=== PATIENT | male | born 1995 | race Caucasian/White ===

== ENCOUNTER 2022-09-12 15:24 | Emergency (ER) | payer BC, SELFPAY ==
[2022-09-12] VITALS (10 sets, daily range): BP systolic 116–142; BP diastolic 69–83; PULSE 83–108; RESP 12–19; TEMP 37.2; O2SAT 97–99
--- NOTE | ~2022-09-12 | CT_ITS ---
EXAMINATION: CT facial & cervical spine wo DATE: 09/12/2022 17:32 INDICATION: fall TECHNIQUE: Computed tomography (CT) of the maxillofacial region and cervical spine was performed with out intravenous contrast. Automated exposure control and iterative reconstruction technique were empl oyed. The dose-length product was 495.05 mGy-cm. COMPARISON: CT brain, same date. CT face 01/30/2009. FINDINGS: CERVICAL: Vertebral Body Alignment: Intact. Craniocervical and atlantoaxial alignment: No significant degenerative change. Alignment intact. Osseous structures/fracture: No evidence of a lytic or blastic process in the visualized spine. No e vidence of acute fracture. Unfused posterior arch at C6. Cervical soft tissues: The paraspinal soft tissues planes are maintained. Degenerative changes: Mild degenerative changes, without severe neural foraminal or central canal yarelis rowing. FACE: Soft Tissues: No significant superficial soft tissue swelling. Facial bones: No acute fracture. No lytic or blastic process. Eyes: The globes are intact. The soft tissue planes of the orbits are maintained. Paranasal Sinuses: Left frontal ethmoid and maxillary sinus mucosal thickening with aerated secretio ns in the maxillary sinus. Left mastoid effusion. Foreign Bodies: No radiopaque foreign bodies. Other Findings: None. IMPRESSION: No acute fracture or traumatic malalignment in the cervical spine. No acute facial bone fracture. Par anasal sinus findings may represent acute sinusitis in the appropriate clinical context. Left mastoid effusion. Reviewed, dictated and finalized at location K. ER LEVELER IMPRESSION: No acute fracture or traumatic malalignment in the cervical spine. No acute fac ial bone fracture. Paranasal sinus findings may represent acute sinusitis in th e appropriate clinical context. Left mastoid effusion.
--- NOTE | ~2022-09-12 | CT_ITS ---
EXAMINATION: CT brain wo con DATE: 09/12/2022 16:46 INDICATION: syncope . TECHNIQUE: Computed tomography (CT) of the head was performed without intravenous contrast. The mA wa s adjusted according to patient size. Iterative reconstruction technique was employed. The dose-lengt h product was 605.33 mGy-cm. COMPARISON: 01/30/2009. FINDINGS: No acute intracranial hemorrhage or extra-axial fluid collection. No hydrocephalus, mass, or herniation. No acute ischemic infarct. Unremarkable dural venous sinus attenuation. No acute osseous abnormality. Aerated secretions and mucosal thickening in the right maxillary and right ethmoid sinuses. Left mast oid effusion. The remaining aerated spaces are clear. IMPRESSION: No acute intracranial process. Right ethmoid and maxillary sinus findings may represent acute sinusit is in the appropriate clinical context. Left mastoid effusion. Reviewed, dictated and finalized at location K. L ENGRAVER IMPRESSION: No acute intracranial process. Right ethmoid and maxillary sinus findings may r epresent acute sinusitis in the appropriate clinical context. Left mastoid effu karin.
--- NOTE | ~2022-09-12 | XR_ITS ---
EXAMINATION: XR chest 1V portable Exam Date/Time: 09/12/2022 16:29 KID CLUB ATTENDANT HISTORY: Syncope Comparison: None available. RESULT: Lines, tubes, and devices: None. Lungs and pleura: Clear. Cardiomediastinal silhouette: Stable. Other: No acute osseous or upper abdominal finding. IMPRESSION: No acute cardiopulmonary process. Reviewed, dictated and finalized at location K. CLUB ATTENDANT
--- NOTE | 2022-09-12 15:31 | ECG_ITS ---
Measurements Intervals [place] Rate: 94 P: 19 WI: 124 QRS: 47 QRSD: 108 T: 36 QT: 345 QTc: 432 Interpretive Statements SINUS RHYTHM NORMAL ECG NO PREVIOUS ECG AVAILABLE FOR COMPARISON Electronically Signed On 09-12-2022 17:03:53 CONSUMER STUDIES PROFESSOR by Jhon Bloom M.D.
--- NOTE | 2022-09-12 16:26 | ED.SYNCOPE ---
HPI - Syncope General Chief Complaint: Syncope Stated Complaint: syncope Time Seen by Provider: 09/12/22 16:22 Source: patient and family Mode of arrival: ambulatory Limitations: no limitations History of Present Illness HPI narrative: Patient is 27 years old white female was in a [employer] libertarian, was in a standing position for about 2 to 3 minutes, suddenly developed lightheadedness and dizziness, ended up on the ground, grass, he reports marijuana use. He is telling me that he did not drinking alcohol at that time. His mom went to pick him up and drove him to our emergency room. Patient reported having similar symptoms 8 years ago of unknown etiology. Patient been having cold like symptoms for over 1 month, did not tested for COVID, is not vaccinated for COVID, finished a course of antibiotics for chronic sinusitis and bronchitis yesterday, patient on chronic antihistamine medication. Patient reports that his coughing and cold symptoms did not get any better after finishing the course of antibiotic. Patient complaining of left face pain after falling to the ground Related Data Allergies Allergy/AdvReac Type Severity Reaction Status Date / Time No Known Allergies Allergy Mild Verified 09/12/22 17:55 Review of Systems Review of Systems: All systems reviewed & are unremarkable except as noted in HPI and below PMFSH Past Medical History Medical History BMI 34.0-34.9,adult BMI 35.0-35.9,adult Body mass index [BMI] 36.0-36.9, adult COVID-19 Left shoulder pain Family History Family History Grandparent Hypertension Family history of heart disease in male family member before age 55 Diabetes mellitus Father No problems noted. 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 Musculoskeletal: Normal range of motion, nontender back Neurologic: Alert and oriented ?3, STUDENT SERVICES DIRECTOR is normal as tested, no gross motor deficit Course Vital Signs Vital signs: Vital Signs Temperature 37.2 C 09/12/22 15:30 Pulse Rate 108 H 09/12/22 15:30 Respiratory Rate 17 09/12/22 15:30 Blood Pressure 127/69 09/12/22 15:30 Pulse Oximetry 99 09/12/22 15:30 Oxygen Delivery Room Air 09/12/22 15:30 Temperature 37.2 C 09/12/22 15:30 Pulse Rate 91 09/12/22 19:45 Respiratory Rate 13 09/12/22 19:45 Blood Pressure 133/71 09/12/22 19:31 Pulse Oximetry 98 09/12/22 19:45 Oxygen Delivery Room Air 09/12/22 15:30 MDM - Syncope MDM Narrative Medical decision making narrative: Patient presents with syncope. While enjoying [employer] libertarian. Complaining of left facial pain otherwise asymptomatic. History of chronic sinus infecti
[2022-09-12 16:30] LABS: Basophils Percent Auto 0.3 % (0.2-1.2); Eosinophils Absolute Auto 0.1 K/mm3 (0-0.3); Eosinophils Percent Auto 0.5 % (0-4.4); Hematocrit 45.8 % (42.0-52.0); Hemoglobin 16.4 g/dL (14.0-18.0); Immature Granulocyte Absolute 0.07 K/mm3 (0.00-0.031); Immature Granulocyte Percent A 0.5 % (0-0.5); Lymphocytes Absolute Auto 0.56 K/mm3 (0.9-3.2); Lymphocytes Percent Auto 4.1 % (18.3-44.2); Mean Corpuscular HGB Conc 35.8 g/dl (32-36); Mean Corpuscular Hemoglobin 30.3 pg (26-34); Mean Corpuscular Volume 84.7 fl (80-100); Mean Platelet Volume 9.9 fl (7.4-10.4); Monocytes Absolute Auto 0.7 K/mm3 (0.1-0.6); Monocytes Percent Auto 5.3 % (2.6-8.5); Neutrophils Absolute Auto 12.3 K/mm3 (1.3-6.7); Neutrophils Percent Auto 89.3 % (45.5-73.1); Platelet Count Result 182 k/mm3 (150-375); Red Blood Count 5.41 M/mm3 (4.6-6.20); Red Cell Distribution Width 12.5 % (11.5-14.5); White Blood Count 13.8 K/mm3 (4.5-10.0)
[2022-09-12 16:42] LABS: Alanine Aminotransferase 55 U/L (6-50); Alkaline Phosphatase 56 U/L (38-126); Anion Gap 9 mmol/L (8-16); Aspartate Amino Transferase 38 U/L (17-59); Bilirubin,Total 1.3 mg/dL (0.2-1.3); Blood Urea Nitrogen 16 mg/dL (9-20); Calcium 8.9 mg/dL (8.4-10.2); Carbon Dioxide 24 mmol/L (22-30); Chloride 105 mmol/L (98-107); Estimated CRCL calculation 119 ml/min; Estimated Glomerular Filt Rate > 60; Glucose 91 mg/dL (65-110); Potassium 3.8 mmol/L (3.4-5.0); Sodium 138 mmol/L (137-145)
[2022-09-12 17:30] LABS: Ethanol 11 mg/dL (<10)
[2022-09-12 17:37] LABS: Troponin I < 0.012 ng/mL (0.000-0.034)
[2022-09-12] MEDS: SODIUM CHLORIDE 0.9% IV 1,000 ML 999 ML IV CONT (17:49)
[2022-09-12 18:15] LABS: Add Urine Microscopic? NO; Appearance Urine Clear (Clear); Bilirubin Urine Negative (Negative); Blood Urine Negative (Negative); Color Urine Yellow (Yellow); Glucose Urine UA Negative (Negative); Ketones Urine Negative (Negative); Leukocyte Esterase Ur Negative LEU/UL (Negative); Nitrate Urine Negative (Negative); Protein Urine Negative (Negative); Urobilinogen Urine 0.2 mg/dL (<2.0); pH Urine 5.5 (5.0-9.0)
[2022-09-12 18:29] LABS: Amphetamine Screen Urine Positive (Negative); Barbiturate Screen Urine Negative (Negative); Benzodiazepines Screen Urine Negative (Negative); Cannabinoid Screen Urine Positive (Negative); Cocaine Screen Urine Negative (Negative); Methadone Screen Urine Negative (Negative); Opiate Screen Urine Negative (Negative); Phencyclidine Screen Urine Negative (Negative)
[2022-09-12 18:49] LABS: Influenza A QL RT-PCR Negative (Negative); Influenza B QL RT-PCR Negative (Negative); RSV RNA, RT-PCR Negative (Negative); SARS-CoV-2 RNA PCR Negative
--- NOTE | 2022-09-12 19:54 | PC.NURSE ---
Pt ambulatory to bathroom with steady gait at this time. Dr. Condon made aware.
== END 2022-09-12 20:06 | disposition home or self-care (01) ==
PROVIDERS: Emergency Provider Emergency Medicine; PCP Family Medicine
DX: R55 Syncope and collapse (principal); J32.9 Chronic sinusitis, unspecified; F15.90 Other stimulant use, unspecified, uncomplicated; F12.90 Cannabis use, unspecified, uncomplicated; Z20.822 Contact with and (suspected) exposure to COVID-19; Z86.16 Personal history of COVID-19; Z28.310 Unvaccinated for COVID-19
CPT/HCPCS: 36415; 70450; 70486; 71045; 72125; 80053; 80307; 81003; 84484; 85025; 87637; 93005; 96360; 96361; 99284; J7030

== ENCOUNTER 2023-01-05 00:25 | Day surgery (SDC) | payer BC, SELFPAY ==
[2023-01-04 08:41] VITALS: BMI 34.5
[2023-01-05 09:09] VITALS: BP 131/85; PULSE 72; RESP 16; TEMP 36.5; O2SAT 100; BMI 34.0
--- NOTE | 2023-01-05 09:13 | WPDANESEPPF ---
Anes - Initial Pre Proc Eval Procedure: Operation Date: 01/05/23 10:15 Proposed Procedures p Colonoscopy - Arsenio Boles MD Date/Time: 01/05/23 09:13 Surgeon: Arsenio Boles MD Pre Op Diagnosis: melena Patient Data Age: 27 Gender: M Height: 1.55 m Weight: 81.6 kg Last Vital Signs Temp 36.5 C 01/05/23 09:09 Pulse 72 01/05/23 09:09 Resp 16 01/05/23 09:09 BP 131/85 01/05/23 09:09 Pulse Ox 100 01/05/23 09:09 O2 Del Method Room Air 01/05/23 09:09 Allergies Allergy/AdvReac Type Severity Reaction Status Date / Time No Known Allergies Allergy Mild Verified 01/05/23 09:07 Home Medications Medication Instructions Recorded Confirmed Type meloxicam 15 mg tablet 15 mg PO DAILY #30 tabs 10/21/22 01/05/23 Rx lisdexamfetamine 70 mg capsule 70 mg PO DAILY #30 caps 12/28/22 01/05/23 Rx (Vyvanse) Patient hx anesthesia problems: none Family hx anesthesia problems: none Results Review: All pre-operative results and documents have been reviewed as part of the pre-operative evaluation. [facility] Past Medical History Medical History BMI 32.0-32.9,adult BMI 34.0-34.9,adult BMI 35.0-35.9,adult Body mass index [BMI] 36.0-36.9, adult COVID-19 Left shoulder pain Family History Family History Grandparent Hypertension Family history of heart disease in male family member before age 55 Diabetes mellitus Father No problems noted. Mother COVID-19 Sibling COVID-19 Social History Social History (Updated 11/26/22 @ 09:47 by TRESA Díaz) Smoking status: Former smoker Tobacco type: cigarettes Second hand tobacco smoke exposure: Yes Alcohol intake: former Substance use: current Substance use type: marijuana, crack/cocaine and methamphetamine Other substance usage details: occasionally Lack of Transportation: No Lack of Food: Never True Current Housing: I Have Housing Concerned About Future Housing: No Difficulty Paying Gas/Electric Bills: No Difficulty Paying for Meds: No Currently Unemployed: No Education: Trade/Vocational Certificate Difficulty w/ Childcare or Family Care: No Living arrangements: alone Occupation/Education: occupation 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 Informed Consent: The patient's anesthetic plan and its attendant risks and benefits were discussed with the patient/family/POA. Questions were solicited and answers provided to the satisfaction of the patient/family/POA.
[2023-01-05] MEDS: LACTATED RINGERS 1,000 ML 150 ML IV CONT (09:20)
--- NOTE | 2023-01-05 09:42 | PM.HPGS ---
History of Present Illness History of Present Illness Consent: Risks, benefits, and alternatives have been discussed and questions answered. Patient agrees to proceed with procedure. Chief complaint: melena Narrative: Sammy Cronin is a 27 year old male with intermittent blood in stool, never had colonoscopy Review of Systems Constitutional: Constitutional: Denies headache(s) and Denies weakness Eyes: Eyes: Denies blurry vision ENT: Reports Normal hearing present, Denies headache(s) and Denies neck pain Cardiovascular: Cardiovascular: Denies chest pain and Denies dyspnea Respiratory: Respiratory: Denies dyspnea Gastrointestinal: Gastrointestinal: Reports no additional gastrointestinal complaints Genitourinary: Genitourinary: Denies dysuria Musculoskeletal: Musculoskeletal: Denies neck pain Integumentary/Breasts: Skin/Breast: Denies dry skin Neurologic: Reports Normal hearing present, Denies headache(s) and Denies weakness Psychiatric: Psychiatric: Denies anxiety Endocrine: Endocrine: Denies change in body appearance Hematologic/Lymphatic: Hematologic/Lymphatic: Denies easy bleeding Allergic/Immunologic: Allergic/Immunologic: Denies urticaria PMFSH Past Medical History Medical History BMI 32.0-32.9,adult BMI 34.0-34.9,adult BMI 35.0-35.9,adult Body mass index [BMI] 36.0-36.9, adult COVID-19 Left shoulder pain Family History Family History Grandparent Hypertension Family history of heart disease in male family member before age 55 Diabetes mellitus Father No problems noted. Mother COVID-19 Sibling COVID-19 Social History Social History (Updated 11/26/22 @ 09:47 by TRESA Díaz) Smoking status: Former smoker Tobacco type: cigarettes Second hand tobacco smoke exposure: Yes Alcohol intake: former Substance use: current Substance use type: marijuana, crack/cocaine and methamphetamine Other substance usage details: occasionally Lack of Transportation: No Lack of Food: Never True Current Housing: I Have Housing Concerned About Future Housing: No Difficulty Paying Gas/Electric Bills: No Difficulty Paying for Meds: No Currently Unemployed: No Education: Trade/Vocational Certificate Difficulty w/ Childcare or Family Care: No Living arrangements: alone Occupation/Education: occupation 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 Gender identity (if verbalized by the patient): Male Spiritual care concerns: No Meds Home Medications and Allergies Home Medications Medication Instructions Recorded Confirmed Type meloxicam 15 mg tablet 15 mg PO DAILY #30 tabs 10/21/22 01/05/23 Rx lisdexamfetamine 70 mg capsule 70 mg PO DAILY #30 caps 12/28/22 01/05/23 Rx (Vyvanse) Allergies Allergy/AdvReac Type Severity Reaction Status Date / Time No Known Allergies Allergy Mild Verified 01/05/23 09:07 Vital Signs Vital Signs - 24 hr 01/05/23 09:09 Temperature 97.7 F Pulse Rate 72 Respiratory Rate 16 Blood Pressure 131/85 Pulse Oximetry 100 Oxygen Delivery Room Air Exam Const: General: comfortable and no acute distress HENMT: Face/Nose/Sinus: Normal nares present Eyes: General: appearance normal, both eyes and all related structures Neck: Neck: no JVD Resp: Auscultation: clear to auscultation bilaterally Cardio: Rate: regular rate Rhythm: regular rhythm GI: Inspection: non-distended GI Palp: Yes Soft to palpation Skin: General skin exam: normal color Neuro: General: gait normal Speech: normal speech Extrem: General: normal to inspection Psych: Mental Status: mental status grossly normal Assessment and Plan Assessment and plan (1) Blood in stool: Code(s): K92.1 - Melena Status: Acute Assessment and Plan: probably perianal but will assess with col
[2023-01-05 10:04] VITALS: BP 115/57; PULSE 62; RESP 19; O2SAT 97
[2023-01-05 10:14] VITALS: BP 107/57; PULSE 77; RESP 16; O2SAT 100
[2023-01-05 10:24] VITALS: BP 111/56; PULSE 63; RESP 20; O2SAT 100
== END 2023-01-05 10:30 | disposition home or self-care (01) ==
PROVIDERS: PCP Family Medicine; Visit Provider Internal Medicine Gastroenterology
PROC: 0DJD8ZZ Inspection of Lower Intestinal Tract, Via Natural or Artificial Opening Endoscopic (ICD-10-PCS; CPT 45378; principal; 2023-01-05 10:15)
DX: K64.8 Other hemorrhoids (principal); F14.90 Cocaine use, unspecified, uncomplicated; F15.90 Other stimulant use, unspecified, uncomplicated; F12.90 Cannabis use, unspecified, uncomplicated; E66.9 Obesity, unspecified; Z68.34 Body mass index [BMI] 34.0-34.9, adult; Z87.891 Personal history of nicotine dependence
CPT/HCPCS: 45378; J2001; J2704; J7120